=== PATIENT | female | born 1935 | race Caucasian/White ===

== ENCOUNTER 2019-10-09 10:26 | Day surgery (SDC) ==
[2019-10-08 10:01] LABS: HEMATOCRIT 36.8 % (37.0-47.0); HEMOGLOBIN 11.1 g/dL (12.0-16.0); MCH 31.1 PG (27-31); MCHC 30.2 g/dL (33-37); MCV 103.1 FL (81-99); MPV 10.4 FL (7.4-10.4); RBC 3.57 XMIL (4.2-5.4); RDW 13.4 % (11.5-14.5); WBC 10.86 X1000 (4.8-10.8)
[2019-10-08 11:40] LABS: CALCIUM 9.1 mg/dL (8.8-10.2); POTASSIUM 4.5 mmol/L (3.5-5.1)
[2019-10-09] MEDS ORDERED: KEFZOL 1 GM/D5W 1 GM/50 ML IVPB ONE (11:08)
[2019-10-09] MEDS ORDERED: LR 1,000 ML ONE (11:08)
[2019-10-09] MEDS ORDERED: DIPRIVAN 1% ONE (11:20)
[2019-10-09] MEDS ORDERED: DECADRON ONE (11:21)
[2019-10-09] MEDS ORDERED: XYLOCAINE-MPF 2% ONE (11:26)
[2019-10-09] MEDS ORDERED: NEOSPORIN G.U. IRRIGANT ONE (14:05)
[2019-10-09] MEDS ORDERED: MARCAINE 0.25% PF ONE (14:05)
[2019-10-09] MEDS ORDERED: FENTANYL ONE (14:12)
[2019-10-09] MEDS: DILAUDID ONE ×3 (15:18→15:30)
[2019-10-09] MEDS ORDERED: ZOFRAN IV PRN (16:39)
[2019-10-09] MEDS ORDERED: ZOFRAN ODT PO PRN (16:39)
[2019-10-09] MEDS ORDERED: OXY IR PO PRN (16:40)
[2019-10-09] MEDS ORDERED: ZOFRAN ONE (16:41)
[2019-10-09] MEDS ORDERED: MORPHINE IV PRN (16:42)
[2019-10-09] MEDS ORDERED: NS 1,000 ML IV SCH (16:45)
--- NOTE | 2019-10-09 17:11 | OPERATIVE NOTE ---
PROCEDURE DATE: 10/09/2019 PREOPERATIVE DIAGNOSIS: Right displaced intra-articular distal radial fracture. POSTOPERATIVE DIAGNOSIS: Right displaced intra-articular distal radial fracture. PROCEDURE: Open reduction internal fixation right distal radius. SURGEON: Jacques Reyna MD. BASIC SCIENCES DEAN: MARY Menard, who was necessary for proper positioning, manipulation of the extremity, and retraction during the case, and improved efficiency. ANESTHESIA: General. IV FLUIDS: 1500 mL lactated Ringer. ESTIMATED BLOOD LOSS: [*]. TOURNIQUET TIME: 40 minutes at 250 mmHg. COMPLICATIONS: None. INDICATION: The patient is a pleasant, 83-year-old female who is status post fall on 10/04/2019 injuring her right distal radius. She presented to the emergency room. X-rays revealed a displaced distal radial fracture, placed a splint. Presented to the office and recommendation to proceed with open reduction fixation was offered. Risks and benefits of surgery were explained, including the risks of anesthesia, , bleeding, infection, failure to relieve pain, postoperative stiffness, nerve injury, blood clots, and other imponderables. All questions were answered and the patient and family wished to proceed with surgery. DETAILS OF OPERATION: Patient was taken to the operating room and was placed supine on the operating table. Once adequate anesthesia was obtained, the existing splint was removed and the right upper extremity was subsequently prepped and draped in sterile fashion. Esmarch was used to exsanguinate the right upper extremity. The tourniquet was inflated to 250 mmHg. Attention then turned to the volar aspect of the wrist and a small longitudinal incision made a volar approach to the hand was performed. The incision was carried down through subcutaneous tissue between the interval between the flexor carpi radialis and the brachioradialis. Retractor was then placed. The pronator quadratus was then identified and incised along the radial aspect and retracted ulnarly. After this had been performed, the fracture site was identified. After obtaining provisional reduction with C-arm visualization, a Synthes variable angle distal radial locking plate was placed on the volar aspect of the distal radius. It was first secured with a bicortical screw proximal to the fracture site. After confirming good positioning, the distal locking pegs were then placed. C-arm visualization was used to confirm good positioning and good reduction of fracture, as well as good position of the hardware. After this had been confirmed, 2 locking screws were placed proximal to the fracture site. Final C-arm visualization showed good alignment of the fracture and good position of the hardware. The wound was copiously irrigated. Then 2-0 Vicryl was used to loosely reapproximated the pronator quadratus, followed by 2-0 Vicryl to repair the subcutaneous tissue, and 4-0 nylon was used to close skin in interrupted fashion. Marcaine 0.25% without epinephrine was injected locally. Adaptic, sterile 4 x 4s, Webril, and a volar splint was applied to the right upper extremity. Patient tolerated the procedure well and was transferred to the recovery in stable conditions. cc: Jacques Reyna MD
[2019-10-09] MEDS ORDERED: XARELTO PO SCH (21:00)
[2019-10-09] MEDS ORDERED: GLUCOPHAGE XR PO SCH (21:00)
[2019-10-09] MEDS ORDERED: XALATAN 0.005% OPH SOLN BOTH EYES SCH (21:00)
[2019-10-09] MEDS ORDERED: PRAVACHOL PO SCH (21:00)
[2019-10-09] MEDS ORDERED: NEURONTIN PO SCH (21:00)
[2019-10-09] MEDS: TOPROL XL PO SCH (21:41)
[2019-10-09] MEDS: RYTHMOL SR PO SCH (21:47)
[2019-10-09] MEDS: TIMOPTIC 0.5% OPH SOLUTION OPH SCH (21:48)
[2019-10-09 22:16] LABS: URINE SOURCE CLEAN CATCH
[2019-10-09 22:25] LABS: BILIRUBIN URINE NEGATIVE (NEGATIVE); BLOOD URINE NEGATIVE (NEGATIVE); COLOR YELLOW; GLUCOSE URINE NEGATIVE (NEGATIVE); KETONE URINE NEGATIVE (NEGATIVE); LEUKOCYTES URINE NEGATIVE (NEGATIVE); NITRITE URINE NEGATIVE (NEGATIVE); PROTEIN URINE NEGATIVE (NEGATIVE); SP GRAVITY URINE 1.008; TURBIDITY URINE TURBID (CLEAR); UROBILINOGEN URINE NORMAL (NORMAL)
[2019-10-09 22:52] LABS: UR EPITHELIAL CELLS <10 /HPF (<10); URINE BACTERIA NEGATIVE /HPF; URINE RBC TNTC /HPF (<10); URINE WBC <10 /HPF (<10)
[2019-10-09 22:54] LABS: URINE CASTS NONE SEEN; URINE CRYSTALS NONE SEEN; URINE SMALL ROUND CELLS NONE SEEN; URINE YEAST NONE SEEN
--- NOTE | 2019-10-10 07:11 | ORTHOPAEDICS PROGRESS NOTE ---
DATE: 10/10/2019 SUBJECTIVE: The patient is a pleasant, 83-year-old female who is 1 day status post open reduction and internal fixation of a right distal radial fracture. She also has a nondisplaced superior right rami fracture. She is currently resting comfortably. Her nausea has improved PHYSICAL EXAMINATION: On physical examination of the patient's right upper extremity, her dressing is intact. She has expected swelling. Able to flex and extend all of her fingers. IMPRESSION: 1. Postoperative day #1 status post open reduction and internal fixation of right distal radius. 2. Right nondisplaced superior rami fracture. PLAN: At this point, the patient will be allowed weightbearing as tolerated to the right lower extremity using a platform walker for right upper extremity. She will have a administrator social welfare consult to assist with home needs. cc: Jacques Reyna MD
[2019-10-10] MEDS: TIMOPTIC 0.5% OPH SOLUTION OPH SCH (08:17)
[2019-10-10] MEDS: RYTHMOL SR PO SCH (08:18)
[2019-10-10 11:00] VITALS: BP 106/64
[2019-10-10] MEDS: TOPROL XL PO SCH (11:45)
== END 2019-10-10 13:23 | disposition home or self-care (01) ==
LOC: 4N 10:26 → OR 10:26
PROVIDERS: ATTEND Orthopaedic Surgery Adult Reconstructive Orthopaedic Surgery